=== PATIENT | male | born 1990 | race Caucasian/White ===

== ENCOUNTER 2016-06-28 19:44 | Emergency (ER) | payer OTHER ==
--- NOTE | 2016-06-28 22:51 | ER Document Report ---
ED General - General Chief Complaint: Arm Pain Stated Complaint: PAIN AND TINGLE IN BILATERAL ARMS Time Seen by Provider: 06/28/16 22:50 Mode of Arrival: Ambulatory Information source: Patient TRAVEL OUTSIDE OF THE [place] IN LAST 30 DAYS: No - HPI Notes: Patient is a 25-year-old [employer] duty [employer] presents emergency department with report of pain and tingling sensation in the right greater than left arm that has had intermittently for the last 3-4 days. The patient denies any neck injury that he is aware of. He reports the sensation is worse when he is laying down and trying to sleep at night. The patient admits to being under some recently increased stress related to being a new father and recently being and concerned about his chronic lower back pain. Patient denies any incontinence, chest pain, headache, fever, focal weakness. He states that in December 2015 he was lifting weights and injured his lower back. He states he was told he had a 5 mm protrusion with a possible fracture, but in further discussion he describes more of a anterolisthesis on plain film x -rays, but he never had a CT scan or MRI scan. He states he was placed in a [id number] orthotic back brace, but is never had any other immediate follow-up. - Related Data Allergies/Adverse Reactions: No Known Allergies Allergy (Verified 06/28/16 20:50) Past Medical History - General Information source: Patient - Social History Smoking Status: Current Every Day Smoker Smoking Education Provided: Yes Frequency of alcohol use: Rare Drug Abuse: None Lives with: Family Family History: Reviewed & Not Pertinent Patient has suicidal ideation: No Patient has homicidal ideation: No Renal/ Medical History: Denies: Hx Peritoneal Dialysis Review of Systems - Review of Systems Notes: REVIEW OF SYSTEMS: CONSTITUTIONAL : Denies fever, chills, or sweats. Denies recent illness. EENT: Denies eye, ear, throat, or mouth pain or symptoms. Denies nasal or sinus congestion or discharge. Denies throat, tongue, or mouth swelling or difficulty swallowing. CARDIOVASCULAR: Denies chest pain. Denies palpitations or racing or irregular heart beat. Denies ankle edema. RESPIRATORY: Denies cough, cold, or chest congestion. Denies shortness of breath, difficulty breathing, or wheezing. GASTROINTESTINAL: Denies abdominal pain or distention. Denies nausea, vomiting , or diarrhea. Denies blood in vomitus, stools, or per rectum. Denies black, tarry stools. Denies constipation. GENITOURINARY: Denies difficulty urinating, painful urination, burning, frequency, blood in urine, or discharge. MUSCULOSKELETAL: Denies joint pain or swelling. Patient does report some mild neck pain, but he states it seems unrelated to his discomfort in his arms. SKIN: Denies rash, lesions or sores. HEMATOLOGIC : Denies easy bruising or bleeding. LYMPHATIC: Denies swollen, enlarged glands. NEUROLOGICAL: Denies confusion or altered mental status. Denies passing out or loss of consciousness. Denies dizziness or lightheadedness. Denies headache. Denies weakness or paralysis or loss of use of either side. Denies problems with gait or speech. Denies seizures. No weight loss or vision change. PSYCHIATRIC: Denies anxiety or stress. Denies depression, suicidal ideation, or homicidal ideation. ALL OTHER SYSTEMS REVIEWED AND NEGATIVE. Dictation was performed using [employer] voice recognition software Physical Exam - Vital signs Vitals: Temp Pulse Resp BP Pulse Ox 98.1 F 74 17 140/84 H 98 06/28/16 20:50 06/28/16 20:50 06/28/16 20:50 06/28/16 20:50 06/28/16 20:50 - Notes Notes: PHYSICAL EXAMINATION: GENERAL: Well-appearing, well-nourished and in no acute distress. HEAD: Atraumatic, normocephalic. EYES: Pupils equal round and reactive to light, extraocular movements intact, sclera anicteric, conjunctiva are normal. ENT: Nares patent, oropharynx clear without exudates. Moist mucous membranes. NECK: Normal range of motion, supple without lymphadenopathy. There is some discomfort paraspinally through the cervical spine region more diffusely. There is no reproduction of any discomfort in the arms or paresthesia in the arms with range of motion to the neck or range of motion with axial load placed upon the neck at different angles in flexion, extension and lateral rotation. LUNGS: Breath sounds clear to auscultation bilaterally and equal. No wheezes rales or rhonchi. HEART: Regular rate and rhythm without murmurs ABDOMEN: Soft, nontender, nondistended abdomen. No guarding, no rebound. No masses appreciated. Musculoskeletal: Normal range of motion, no pitting or edema. No cyanosis. Patient has pain appreciated to the lower lumbar spine paraspinal and midline region. No crepitance or bony deformity. No significant radiation through the gluteal region or down the legs. NEUROLOGICAL: Cranial nerves grossly intact. Normal speech, normal gait. Normal sensory, motor exams. No saddle anesthesia. No other abnormality identified. Normal reflexes. PSYCH: Normal mood, normal affect. SKIN: Warm, Dry, normal turgor, no rashes or lesions noted. Course - Re-evaluation Re-evalutation: 06/29/16 00:18 Patient was advised that he needs a follow-up MRI of the lumbar spine and cervical spine. X-ray reviewed by myself, with no obvious evidence for Disc space narrowing or abnormality in alignment. Discussed with the patient's friend who presented with the patient who raised a question about there being a stress component related to the patient's paresthesia and symptoms associated with recent marriage, and new child, and concern about his chronic back issues. No evidence for central cord syndrome or cauda equina syndrome or other acute process. 06/29/16 00:19 - Vital Signs Vital signs: Temp Pulse Resp BP Pulse Ox 98.1 F 74 17 140/84 H 98 06/28/16 20:50 06/28/16 20:50 06/28/16 20:50 06/28/16 20:50 06/28/16 20:50 Discharge - Discharge Clinical Impression: Paresthesia and pain of both upper extremities Chronic lower back pain Qualifiers: Back pain laterality: bilateral Sciatica presence: without sciatica Qualified Code(s): M54.5 - Low back pain Neck strain Qualifiers: Encounter type: initial encounter Qualified Code(s): S16.1XXA - Strain of muscle, fascia and tendon at neck level, initial encounter Condition: Stable Disposition: HOME, SELF-CARE Instructions: Neck Injury (Cervical Strain) ([facility]), Stretching Exercises for the Back ([facility]), Low Back Pain ([facility]) Additional Instructions: You need a follow-up MRI of the cervical spine and lumbar spine as soon as possible. Forms: Return to Work
--- NOTE | 2016-06-28 23:46 | RADIOLOGY REPORT (SQ) ---
EXAM DESCRIPTION: CERV SP 3 VIEW OR LESS COMPLETED DATE/TIME: 06/28/2016 11:20 pm REASON FOR STUDY: atraumatic neck pain, intermittent paresthesia COMPARISON: None. NUMBER OF VIEWS: Three views. TECHNIQUE: AP, lateral and odontoid radiographic images acquired of the cervical spine. LIMITATIONS: None. FINDINGS: MINERALIZATION: Normal. ALIGNMENT: Anatomic. VERTEBRAE: Vertebral bodies of normal height. DISCS: No significant disc space narrowing. No large osteophytes. HARDWARE: None in the spine. SOFT TISSUES: No masses or calcifications. Lung apices clear. OTHER: No other significant finding. IMPRESSION: NO SIGNIFICANT RADIOGRAPHIC FINDING IN THE CERVICAL SPINE. TECHNICAL DOCUMENTATION: JOB ID: [id number] [employer]- All Rights Reserved
[2016-06-29 00:32] VITALS: BP 135/76
== END 2016-06-29 00:32 | disposition home or self-care (01) ==
LOC: ER 19:44
DX: M79.601 Pain in right arm (principal); M79.602 Pain in left arm; R20.2 Paresthesia of skin; S16.1XXA Strain of muscle, fascia and tendon at neck level, initial encounter; X58.XXXA Exposure to other specified factors, initial encounter; M54.5 Low back pain; G89.29 Other chronic pain; F17.200 Nicotine dependence, unspecified, uncomplicated; Z71.6 Tobacco abuse counseling; Z87.828 Personal history of other (healed) physical injury and trauma
CPT/HCPCS: 72040; 99283